=== PATIENT | male | born 1960 | race Caucasian/White ===

== ENCOUNTER 2021-08-06 17:52 | Outpatient (REF) | payer OTHER, SELFPAY ==
[2021-08-08 12:39] LABS: COVID-19 RT-PCR UVMMC Result Positive (Negative)
== END 2021-08-06 17:53 | disposition home or self-care (01) ==
LOC: LBN 17:52
PROVIDERS: PCP Internal Medicine; Visit Provider Physician Assistant
DX: Z20.822 Contact with and (suspected) exposure to COVID-19 (principal); J02.9 Acute pharyngitis, unspecified
CPT/HCPCS: U0003; 87070

== ENCOUNTER 2022-03-01 12:10 | Outpatient (CLI) | payer BC, SELFPAY ==
[2022-03-01 17:06] LABS: Hemoglobin A1C 6.7 % (<5.7)
[2022-03-01 17:21] LABS: CREATININE 0.7 mg/dL (0.70-1.30); Estimated GFR 103.53 (mL/min/1.73m2); Potassium 4.4 mmol/L (3.5-5.1)
[2022-03-02 22:23] LABS: PSA, Screening 0.6 ng/mL (<=4.5)
== END 2022-03-01 12:11 | disposition home or self-care (01) ==
LOC: LBO 12:10
PROVIDERS: PCP Nurse Practitioner Family; Visit Provider Nurse Practitioner Family
DX: I10 Essential (primary) hypertension (principal); R73.03 Prediabetes; R35.1 Nocturia; Z12.5 Encounter for screening for malignant neoplasm of prostate
CPT/HCPCS: 36415; 84153; 82565; 83036; 84132

== ENCOUNTER 2023-05-06 03:36 | Outpatient (CLI) | payer BC, SELFPAY ==
[2023-05-06 08:09] LABS: Abs Immature Grans 0.03 10^3/uL (0.0-0.06); Absolute Basophil Count 0.04 10^3/uL (0.0-0.2); Absolute Eosinophil Count 0.06 10^3/uL (0.0-0.7); Absolute Lymphocyte Count 2.07 10^3/uL (1.2-3.4); Absolute Monocyte Count 0.93 10^3/uL (0.1-0.8); Absolute Neutrophil Count 2.11 10^3/uL (1.2-6.7); Basophils % 0.8; Eosinophils % 1.1; HCT 46.6 % (40.0-50.0); HGB 16.2 g/dL (13.5-17.5); Immature Grans % 0.6; Lymphocytes % 39.5; MCH 30.1 pg (27.0-33.0); MCHC 34.8 % (32.0-36.0); MCV 87 fL (80-95); Monocytes % 17.7; Neutrophils % 40.3; Platelet Count 175 10^3/uL (130-400); RBC 5.39 10^6/uL (4.36-5.78); RDW 12.5 % (11.8-14.1); RDW-SD 39.5 fL; WBC 5.24 10^3/uL (4.4-10.8)
[2023-05-06 08:40] LABS: CREATININE 0.8 mg/dL (0.70-1.30); Calculated LDL 86 mg/dL (<100); Cholesterol 145 mg/dL (<200); Estimated GFR 98.83 (mL/min/1.73m2); Ferritin 337 ng/mL (26-388); HDL Cholesterol 45 mg/dL (40-60); Potassium 4.6 mmol/L (3.5-5.1); Triglyceride 74 mg/dL (<150)
[2023-05-06 08:46] LABS: Iron 92 ug/dL (65-175); Total Iron Binding Capacity 319 ug/dL (250-450)
[2023-05-09 11:33] LABS: Transferrin 254 mg/dL (201-352)
== END 2023-05-06 03:37 | disposition home or self-care (01) ==
PROVIDERS: PCP Nurse Practitioner Family; Visit Provider Nurse Practitioner Family
DX: D50.9 Iron deficiency anemia, unspecified (principal); I10 Essential (primary) hypertension; I70.90 Unspecified atherosclerosis
CPT/HCPCS: 36415; 80061; 82565; 82728; 83540; 83550; 84132; 84466; 85025

== ENCOUNTER 2024-05-11 12:14 | Outpatient (REF) | payer MEDICARE, BC, SELFPAY ==
[2024-05-11 14:32] LABS: COMMENT (LAB VIEW ONLY) 113.89 mg/dL; Microalb ug/mg Crea 4.6 ug/mg Cr
== END 2024-05-11 12:15 | disposition home or self-care (01) ==
LOC: LBN 12:14
PROVIDERS: PCP Nurse Practitioner Family; Visit Provider Nurse Practitioner Family
DX: E11.9 Type 2 diabetes mellitus without complications (principal); J84.10 Pulmonary fibrosis, unspecified; Z12.83 Encounter for screening for malignant neoplasm of skin; I10 Essential (primary) hypertension; E78.2 Mixed hyperlipidemia
CPT/HCPCS: 82043; 82570

== ENCOUNTER 2024-06-08 00:20 | Outpatient (CLI) | payer MEDICARE, BC, SELFPAY ==
--- NOTE | 2024-06-08 10:06 | DI.RAD_ITS ---
Exam(s) XR CHEST 2V PA LATERAL EXAM: XR CHEST 2V PA LATERAL CLINICAL HISTORY: Hx of nodule,calcified granuloma lung,j84.10 TECHNIQUE: 2D digital imaging was performed of the chest. Two images were obtained. PA and lateral views were obtained. COMPARISON: CR XR CHEST 2 VW from 05/28/2019 FINDINGS: MEDIASTINUM: Normal. HEART: Normal. PULMONARY VASCULATURE: Normal. LUNGS: There is a calcified granuloma in the right mid lung. The lungs are clear. PLEURAL SPACE: No pleural effusion or pneumothorax. BONE:Within normal limits for the patient's age. OTHER FINDINGS:Normal. IMPRESSION: No acute pulmonary findings. DATA REPOSITORY: RADIATION DOSE DELIVERED:
== END 2024-06-08 00:40 ==
LOC: DI 00:21
PROVIDERS: PCP Nurse Practitioner Family; Visit Provider Nurse Practitioner Family
DX: J84.10 Pulmonary fibrosis, unspecified (principal)
CPT/HCPCS: 71046